=== PATIENT | female | born 2000 | race Caucasian/White ===

== ENCOUNTER → 2020-02-07 14:10 | Outpatient (CLI) | payer OTHER, SELFPAY ==
[2020-02-07 16:11] LABS: AST(SGOT) 112 U/L (15-37); Alanine Aminotransfer ALT/SGPT 215 U/L (13-56); Albumin, Serum 3.5 g/dL (3.2-5.0); Alkaline Phosphatase 375 U/L (45-117); Bilirubin, Direct 0.47 mg/dL (0.00-0.30); GGTP 248 U/L (5-55); Globulin 4.3 g/dL (2.2-4.2); Protein, Total 7.8 g/dL (6.4-8.2)
[2020-02-10 14:07] LABS: HEPATITIS B SURFACE AG Negative (Negative); Hepatitis A AB, Total Positive (Negative); Hepatitis A IgM Antibody Negative (Negative); Hepatitis B Core AB IgM Negative (Negative); Hepatitis B Core Ab Total Negative (Negative); Hepatitis C Ab <0.1 s/co ratio (0.0-0.9)
[2020-02-13 11:55] LABS: EBV Acute VCA IgM > 160.0 U/mL (0.0-35.9); EBV Nuclear Antigen IgG < 18.0 U/mL (0.0-17.9); Hep B Surface Antibodies Reactive (.)
== END ==
PROVIDERS: Referring Provider Internal Medicine Gastroenterology; Visit Provider Internal Medicine Gastroenterology
DX: R17 Unspecified jaundice (principal)
CPT/HCPCS: 36415; 80076; 82977; 86664; 86665; 86704; 86705; 86706; 86708; 86709; 86803; 87340

== ENCOUNTER 2021-09-28 12:29 | Day surgery (SDC) | payer SELFPAY ==
[2021-09-28] VITALS (8 sets, daily range): BP systolic 104–124; BP diastolic 61–81; PULSE 60–87; RESP 16–18; TEMP 35.8–36.6; O2SAT 94–100; BMI 28.2
--- NOTE | 2021-09-28 13:53 | PCM.HP.BLA ---
History and Physical Date of Admission: 09/28/21 Chief complaint: Vaginal bleeding History of present illness: 21-year-old G1, P0 at 10 weeks and 1 day arrives with vaginal bleeding diagnosed with incomplete . Denies headache, visual changes, chest pain, shortness of breath, nausea vomiting. Obstetrical history: G1: Current Past medical history: None Medications: vitamin Past surgical history: None Allergies: No known drug allergies Social history: Denies smoking, alcohol use, drug use Family history: Denies history DVT or PE Review of systems: Besides above pertinent positives a full review of systems was performed and found to be negative Physical exam: Vitals: Pending General: Normal-appearing no acute distress HEENT: Normocephalic atraumatic no cervical of adenopathy Cardiac/respiratory: No use of accessory muscles, nonlabored breathing Abdomen: Soft, nontender, nondistended Extremities: No peripheral edema normal peripheral pulses Psych: Normal affect, demeanor nonpressured speech Labs: Pending Assessment plan: 21-year-old G1, P0 at 10 weeks and 1 day with incomplete elects for suction D&C. Risk benefits alternatives discussed, all questions answered and consent was signed. Rh status pending. 200 mg of IV doxycycline.
--- NOTE | 2021-09-28 14:00 | POC_PTH ---
PATIENT: BRITT BARBER LOC: [facility] [place] U#:[id number] AGE/SX: 21/F ROOM: RE09/28/[address]: Dr. Diogo Elizalde MD : 2000 BED: DIS: 09/28/2021 SPEC #: [id number] RECD: 09/28/21 15:08 STATUS: OREN MARYA #: [id number] NATHALY: 09/28/21 14:[address]: Diogo Elizalde DEPT: SURGICAL PATHOLOGY RECD BY: Margo Mir ENTERED: 09/29/21 12:46 SP TYPE: PROD CONC OTHR DR: Dr. Philippe Frazier DO Tissues: Product of conception, NOS Procedures: Surgery Specimen Level IV HEADER OPERATION: Suction dilation and curettage PRE-OP DIAGNOSIS: Incomplete TISSUE SUBMITTED: Products of conception MICROSCOPIC DIAGNOSIS Products of conception: [place], secretory endometrium and immature chorionic villi (products of conception). SJ:mary grace 09/30/2021 MICROSCOPIC DESCRIPTION Slides are reviewed. GROSS DESCRIPTION Received in fixative is one container labeled with the patient's name and designated products of conception. The specimen consists of multiple irregular fragments of light to dark wood soft tissue that in aggregate measure 5 x 5 x 3.4 cm. parts are not grossly recognized. [employer] portions are submitted in three cassettes. / AM:mary grace 09/29/21 TC:5 CPT: 31344
[2021-09-28 14:07] LABS: Hematocrit 43.2 % (37-47); Hemoglobin 14.4 g/dL (12.0-15.0); Mean Corp Hgb Conc 33.3 g/dL (32-36); Mean Corpuscular Hgb 27.9 pg (27.0-32.0); Mean Corpuscular Volume 83.7 fL (81-99); Mean Platelet Vol. 8.8 fl (6.2-12.0); Platelet Count 307 K/mm3 (150-450); RBC Distribution Width CV 11.3 % (11.6-14.6); RBC Distribution Width SD 34.7 fl (35.1-43.9); Red Blood Count 5.16 M/mm3 (4.2-5.4); White Blood Count 7.1 K/mm3 (4.4-11.0)
--- NOTE | 2021-09-28 14:59 | PCM.DC ---
Discharge Instructions Diet Discharge Diet: No restrictions Activity Discharge Activity: Return to Normal Activity, May Drive and May Shower May resume sexual activity in: 4-6 weeks Weight Bearing Status: Weight bearing as tolerated Dressing / Incision Call your doctor if your incision/area has: Continuous Slow Oozing and Foul Smelling Discharge Call your doctor if you observe: Fever of 101 or Higher, Shortness of breath and Chest pain Follow Up Care Please Follow Up With: Diogo Elizalde MD When: 2 weeks postoperatively Test Results: Test results from this visit will be discussed in further detail at your follow-up appointment, if applicable. Discharge Plan Admission Attending Provider: Diogo Elizalde Primary Care Provider: Philippe Frazier Discharge Orders/Prescriptions Prescriptions: No Action DHA+Complete 305-300 mg-mcg-mg Combo Pack PO RF: 0 Disposition Discharge Orders: Discharge Patient (Routine); Ordered 09/28/21 Ordered By: Dr. Diogo Elizalde
--- NOTE | 2021-09-28 15:00 | OP.PCM_ITS ---
Report of Operation Date of Procedure: 09/28/21 Pre-Operative Diagnosis: Incomplete Post-Operative Diagnosis: Incomplete Surgery/Procedure Performed:: Suction dilation and curettage Description of Surgical Findings:: Surgeon: Diogo Elizalde MD Anesthesia: General EBL: 20 cc Urine output: 50 cc IV fluids: 300 cc Complications: None Specimen: Products of conception Findings: Cervix 1 cm dilated. Minimal to moderate amount of bleeding. Minimal to moderate amount of uterine tissue using 8 mm curved suction curette. Consent: Patient with vaginal bleeding and diagnosed with incomplete elects for suction dilation and curettage. Patient understands the risk of the procedure include but are not limited to visceral or vascular injury, prolonged hospitalization, blood loss and need for transfusion, reoperation. Patient stated understanding and wished to proceed. All questions were answered and consent was signed. Procedure: Patient was brought back to the OR where general anesthesia found to be adequ ate. 200 mg of IV doxycycline given for infection prophylaxis. Patient was prepared and draped in a dorsal lithotomy position with yellowfin stirrups. A weighted speculum was placed in the posterior aspect of vagina and cervical dilators were used to dilate the cervix. 8 mm curved suction curettage was used under direct visualization. Above findings were noted. Products of conception sent to pathology. Good hemostasis was noted. All counts were correct x2. Patient tolerated procedure well and was brought to recovery in stable condition.
== END 2021-09-28 17:43 | disposition home or self-care (01) ==
LOC: SDC 12:34 → AC 12:42
PROVIDERS: PCP Family Medicine; Visit Provider Obstetrics & Gynecology
PROC: (CPT 59812; principal; 2021-09-28 13:45)
DX: O03.4 Incomplete spontaneous abortion without complication (principal); Z20.822 Contact with and (suspected) exposure to COVID-19; Z3A.10 10 weeks gestation of pregnancy
CPT/HCPCS: 59812; 85027; 86850; 86900; 86901; 87426; 88305; 90384; J7120; J2790